=== PATIENT | female | born 1965 | race Caucasian/White ===

== ENCOUNTER 2019-07-17 01:09 | Inpatient (IN) | payer BC ==
[~2019-07-17] VITALS: Ht 157.5 cm; Wt 35.4 kg
[2019-07-17 01:15] VITALS: BP_SYST 119
[2019-07-17] MEDS ORDERED: MORPHINE 2 MG/ML INJ. SYRINGE IVP ONE (02:00)
[2019-07-17] MEDS ORDERED: ONDANSETRON HCL 4 MG/2 ML VIAL IVP ONE (02:00)
[2019-07-17] MEDS ORDERED: NACL 0.9% 1,000 ML IV ONE ×2 (02:15→07:15)
[2019-07-17] MEDS ORDERED: LEVOFLOXACIN 500 MG/D5W 100 ML IV ONE (02:15)
[2019-07-17 02:56] LABS: RED CELL DISTRIBUTION WIDTH 16.6 % (9.0-15.0)
[2019-07-17 03:25] LABS: HEMATOCRIT 35.9 % (36-48); HEMOGLOBIN 12.3 g/dL (12.0-16.0); MEAN CORPUSCULAR HEMOGLOBIN 34 pg (27-31); MEAN CORPUSCULAR HGB CONC 34 % (32-36); MEAN CORPUSCULAR VOLUME 98 fL (79.0-98.0); PLATELET COUNT (AUTO) 292 K/uL (130-430); RED BLOOD CELL COUNT(AUTO) 3.65 MIL/uL (4.2-6.2); WHITE BLOOD COUNT (AUTO) 3.8 K/uL (4.8-10.8)
[2019-07-17 03:37] LABS: BILIRUBIN,URINE 1+ (NEGATIVE); BLOOD, URINE 3+ (NEGATIVE); COLOR,URINE YELLOW (YELLOW); GLUCOSE,URINE NEGATIVE (NEGATIVE); KETONES,URINE NEGATIVE (NEGATIVE); LEUKOCYTE ESTERASE ,URINE NEGATIVE (NEGATIVE); NITRITE, URINE NEGATIVE (NEGATIVE); PROTEIN URINE 2+ (NEGATIVE); UROBILINOGEN,URINE 0.2 (0.2-1.0)
[2019-07-17 03:39] LABS: CLARITY/URINE SLIGHTLY HAZY (CLEAR); CREATININE 0.92 mg/dL (0.55-1.30)
[2019-07-17 03:43] LABS: ALBUMIN 4.1 g/dL (3.4-4.8); TOTAL BILIRUBIN 0.8 mg/dL (0.0-1.0)
[2019-07-17 03:45] LABS: PROTHROMBIN TIME 10.4 SECS (9.5-12.5)
[2019-07-17] MEDS ORDERED: IOHEXOL 100 ML IV ONE (04:05)
[2019-07-17 04:06] LABS: BACTERIA,URINE FEW /HPF (None Seen); RBC,URINE 20-50 /HPF (0-3); WBC,URINE 0-3 /HPF (0-3)
[2019-07-17 04:12] LABS: BAND % (MANUAL) 2 % (0-6); LYMPHOCYTES % (MANUAL) 7 % (20-46)
[2019-07-17 04:13] LABS: BASOPHILS % (MANUAL) 0 % (0-2); EOSINOPHILS % (MANUAL) 1 % (0-7); MONOCYTES % (MANUAL) 6 % (0-11)
[2019-07-17] MEDS ORDERED: METO-290 PO (06:05)
[2019-07-17] MEDS ORDERED: dilaudid PO (06:05)
[2019-07-17] MEDS ORDERED: MORP15TA PO (06:05)
[2019-07-17] MEDS ORDERED: LIDOINT TP (06:05)
[2019-07-17] MEDS ORDERED: LORazepam 2 MG/ML VIAL IVP ONE (07:00)
[2019-07-17] MEDS: NACL 0.9% 1,000 ML IV SCH ×3 (07:45→20:47)
[2019-07-17] MEDS ORDERED: HYDROmorphone 1 MG INJ. 1 MG/ML AMPUL IVP PRN (07:45)
[2019-07-17] MEDS ORDERED: LIDOCAINE TOPICAL OINT 5%, 35 GM TP PRN ×2 (09:30→15:32)
[2019-07-17] MEDS ORDERED: METOCLOPRAMIDE HCL 10 MG TABLET PO PRN (09:30)
[2019-07-17] MEDS ORDERED: DRONABINOL 2.5 MG CAPSULE PO ONE (10:30)
[2019-07-17] MEDS ORDERED: HYDROmorphone 2 MG/ML VIAL IVP PRN (12:00)
[2019-07-17] MEDS: ONDANSETRON HCL 4 MG/2 ML VIAL IVP PRN ×2 (13:07→20:46)
[2019-07-17 13:09] VITALS: BP_SYST 104
[2019-07-17] MEDS: CEFEPIME 1 GM in D5W 50 ML IV SCH ×2 (14:24→22:28)
[2019-07-17] MEDS: metroNIDAZOLE 500 MG TABLET PO SCH ×2 (14:25→22:28)
[2019-07-17 15:52] VITALS: BP_SYST 99
[2019-07-17 17:00] VITALS: BP_SYST 99
[2019-07-17] MEDS: HYDROmorphone 2 MG/ML VIAL IVP PRN ×3 (17:15→22:37)
[2019-07-17 20:00] VITALS: BP_SYST 88
[2019-07-17] MEDS: MORPHINE SULFATE 30 MG Immediate Release TABLET PO SCH (20:33)
[2019-07-17] MEDS: DRONABINOL 2.5 MG CAPSULE PO SCH (20:47)
[2019-07-18] MEDS: NACL 0.9% 1,000 ML IV SCH ×2 (00:30→10:51)
[2019-07-18] MEDS: HYDROmorphone 2 MG/ML VIAL IVP PRN ×4 (01:11→12:32)
[2019-07-18 04:00] VITALS: BP_SYST 88
[2019-07-18] MEDS: CEFEPIME 1 GM in D5W 50 ML IV SCH (05:41)
[2019-07-18] MEDS: metroNIDAZOLE 500 MG TABLET PO SCH (05:42)
[2019-07-18 06:44] LABS: BASOPHILS % (AUTO) 1.3 % (0.0-2.0); EOSINOPHILS % (AUTO) 1.6 % (0.0-4.0); HEMATOCRIT 27.7 % (36-48); HEMOGLOBIN 9.5 g/dL (12.0-16.0); LYMPHOCYTES # (AUTO) 0.3 K/uL (1.0-5.5); MEAN CORPUSCULAR HEMOGLOBIN 34 pg (27-31); MEAN CORPUSCULAR HGB CONC 35 % (32-36); MEAN CORPUSCULAR VOLUME 100 fL (79.0-98.0); MONOCYTES # (AUTO) 0.2 K/uL (0.0-1.0); MONOCYTES % (AUTO) 6.8 % (1.7-9.3); NEUTROPHILS # (AUTO) 2.6 K/uL (1.8-7.7); NEUTROPHILS % (AUTO) 81.3 % (40.0-70.0); PLATELET COUNT (AUTO) 200 K/uL (130-430); RED BLOOD CELL COUNT(AUTO) 2.77 MIL/uL (4.2-6.2); RED CELL DISTRIBUTION WIDTH 17.1 % (9.0-15.0); WHITE BLOOD COUNT (AUTO) 3.2 K/uL (4.8-10.8)
[2019-07-18 06:48] LABS: INR 1.1 (0.8-1.2); PROTHROMBIN TIME 11.1 SECS (9.5-12.5)
[2019-07-18 06:52] LABS: ALBUMIN 2.8 g/dL (3.4-4.8); CREATININE 0.77 mg/dL (0.55-1.30); POTASSIUM 3.3 mmol/L (3.5-5.1); TOTAL BILIRUBIN 0.5 mg/dL (0.0-1.0)
[2019-07-18 07:09] LABS: CALCIUM 6.2 mg/dL (8.4-11.0)
[2019-07-18] MEDS: DRONABINOL 2.5 MG CAPSULE PO SCH (08:11)
[2019-07-18] MEDS: MORPHINE SULFATE 30 MG Immediate Release TABLET PO SCH (08:18)
[2019-07-18 08:29] VITALS: BP_SYST 92
[2019-07-18] MEDS ORDERED: CALCIUM CHLORIDE 1 GM in NS 100 ML IV ONE (12:15)
[2019-07-18] MEDS ORDERED: POTASSIUM CHLORIDE 20 MEQ TAB.PRT.SR PO ONE (12:15)
[2019-07-18] MEDS ORDERED: CALCIUM CARBONATE 500 MG/ TAB.CHEW PO SCH (12:30)
[2019-07-18] MEDS ORDERED: LR 1,000 ML IV SCH (12:30)
[2019-07-18] MEDS ORDERED: CHOLECALCIFEROL (VITAMIN D3) 2,000 UNIT TABLET PO ONE ×2 (12:30→13:30)
[2019-07-18] MEDS: ONDANSETRON HCL 4 MG/2 ML VIAL IVP PRN (12:31)
[2019-07-18 12:34] VITALS: BP_SYST 82
[2019-07-18] MEDS ORDERED: FLUCONAZOLE 200 mg/ NS 100 ML IV SCH (14:00)
[2019-07-18] MEDS ORDERED: CHOLECALCIFEROL (VITAMIN D3) 2,000 UNIT TABLET PO SCH (21:00)
[2019-07-19] MEDS ORDERED: POTASSIUM CHLORIDE 20 MEQ TAB.PRT.SR PO SCH (09:00)
== END 2019-07-18 15:40 | disposition left against medical advice (07) | DRG 249 ==
LOC: SED 01:09 → STU 07:38
PROVIDERS: ADMIT Internal Medicine; ATTEND Internal Medicine
DX: A09 Infectious gastroenteritis and colitis, unspecified (principal); E43 Unspecified severe protein-calorie malnutrition; C64.9 Malignant neoplasm of unspecified kidney, except renal pelvis; R64 Cachexia; K52.0 Gastroenteritis and colitis due to radiation; E83.51 Hypocalcemia; D63.8 Anemia in other chronic diseases classified elsewhere; E87.1 Hypo-osmolality and hyponatremia; N39.0 Urinary tract infection, site not specified; D72.819 Decreased white blood cell count, unspecified; Z53.29 Procedure and treatment not carried out because of patient's decision for other reasons; E87.6 Hypokalemia; Y84.2 Radiological procedure and radiotherapy as the cause of abnormal reaction of the patient, or of later complication, without mention of misadventure at the time of the procedure; Y82.8 Other medical devices associated with adverse incidents; Z68.1 Body mass index [BMI] 19.9 or less, adult; Z79.899 Other long term (current) drug therapy
CPT/HCPCS: 36415; 71045; 80053; 81000-TC; 83605; 83690-TC; 84484; 85007; 85025; 85027; 85610-TC; 85730-TC; 87040-TC; 93005; 96365; 96375; 99285; G0378; J0692; J1170; J1450; J1956; J2270; J2274; J2405; J7030; J7060; J8597; Q0167; Q9967